=== PATIENT | male | born 1960 | race Caucasian/White ===

== ENCOUNTER 2019-12-16 04:50 | Emergency (ER) | payer OTHER ==
[~2019-12-16 04:50] MED LIST: /GLIP10TAB PO; ALBUPOW9 INH; ALPR0.25; ASPI325T OR; ATOR1TAB19 PO; CARV12.5 PO; CARV6.25 PO; CORE12.5 OR; CORE25TA OR; CYMB1CAP5 PO; ENDOCET; ENDOCET PO; FLEXERIL; HUMA75VL SQ; INSULANT; INSULANT SQ; ISOS30BRAN PO; METO1TAB87 PO; METO5TAB2 OR; NITR0.4S SL; OMEP20CA3 PO; OXYC10TA56; OXYC40TA19; OXYC40TA19 OR; OXYC40TA19 PO; PLAV75TA2 PO; PRIL20CA PO; TRAM50TA2; TRIC145T19 PO; ZETI10TA PO
[2019-12-16 07:39] VITALS: BP 107/64
== END 2019-12-16 07:45 | disposition home or self-care (01) ==
LOC: M ED 04:50
DX: F32.9 Major depressive disorder, single episode, unspecified (principal); F17.200 Nicotine dependence, unspecified, uncomplicated; I11.9 Hypertensive heart disease without heart failure; I25.10 Atherosclerotic heart disease of native coronary artery without angina pectoris; Z79.4 Long term (current) use of insulin; Z79.51 Long term (current) use of inhaled steroids; Z79.82 Long term (current) use of aspirin; Z79.899 Other long term (current) drug therapy; Z87.448 Personal history of other diseases of urinary system; Z88.0 Allergy status to penicillin

== ENCOUNTER 2020-07-23 12:00 | Emergency (ER) | payer MEDICARE, OTHER ==
[2020-07-23] MEDS ORDERED: PANT40TA29 PO (13:20)
[2020-07-23] MEDS ORDERED: BUPR15TASR PO (13:20)
[2020-07-23] MEDS ORDERED: GABA600T4 PO (13:20)
[2020-07-23] MEDS ORDERED: FURO40TA2 PO (13:20)
[2020-07-23] MEDS ORDERED: ASPI81CH33 PO (13:20)
[2020-07-23] MEDS ORDERED: NORV5TAB PO (13:20)
[2020-07-23] MEDS ORDERED: URSO1TAB8 PO (13:20)
[2020-07-23] MEDS ORDERED: VITA50005 PO (13:20)
[2020-07-23] MEDS ORDERED: DOCU8.6T PO (13:20)
[2020-07-23] MEDS ORDERED: CARV6.25 PO (13:20)
[2020-07-23] MEDS ORDERED: NON-325T5 PO (13:20)
[2020-07-23] MEDS ORDERED: VENTAER INH (13:20)
[2020-07-23] MEDS ORDERED: ATOR80TA59 PO (13:20)
[2020-07-23] MEDS ORDERED: OXYC-517 PO (13:20)
[2020-07-23] MEDS ORDERED: oxyCODONE 5MG TAB PO ONE (16:45)
[2020-07-23 16:58] VITALS: BP 136/91
--- NOTE | 2020-08-22 09:51 | REP ---
VENTILATION PERFUSION LUNG SCAN HISTORY: Chest tightness, elevated D-dimer. COMPARISON: Chest CT images 07/23/2020. TECHNIQUE: 1.0 mCi of Technetium-99m DTPA aerosol is given for the ventilation study and is followed by a 4.9 mCi Technetium-99m MAA intravenous dose for the perfusion exam. A series of eight planar images are acquired for each portion of the study. SCINTIGRAPHIC FINDINGS: There is mild central bronchial and esophageal deposition of inspired tracer consistent with some degree of chronic obstructive pulmonary disease (COPD). There is a matched ventilation perfusion defect on the RPO view in the right lung posteriorly. This is seen on lateral radiograph as well. No other perfusion defect is appreciated. IMPRESSION: Low probability scan for pulmonary embolus. MTDD
== END 2020-07-23 17:14 | disposition home or self-care (01) ==
LOC: M ED 12:00
DX: R79.1 Abnormal coagulation profile (principal); R07.9 Chest pain, unspecified; I50.9 Heart failure, unspecified; I25.10 Atherosclerotic heart disease of native coronary artery without angina pectoris; Z86.73 Personal history of transient ischemic attack (TIA), and cerebral infarction without residual deficits; G47.33 Obstructive sleep apnea (adult) (pediatric); J44.9 Chronic obstructive pulmonary disease, unspecified; K27.9 Peptic ulcer, site unspecified, unspecified as acute or chronic, without hemorrhage or perforation; Z89.611 Acquired absence of right leg above knee; Z89.612 Acquired absence of left leg above knee; Z88.0 Allergy status to penicillin; Z91.041 Radiographic dye allergy status; Z79.899 Other long term (current) drug therapy; Z79.02 Long term (current) use of antithrombotics/antiplatelets; Z79.82 Long term (current) use of aspirin; F17.200 Nicotine dependence, unspecified, uncomplicated
CPT/HCPCS: 78582; 84484; 99284; A9540; A9567

== ENCOUNTER 2020-08-08 21:31 | Emergency (ER) | payer MEDICARE, OTHER ==
[~2020-08-08 21:31] MED LIST changes: +ASPI81CH33 PO; +ATOR80TA59 PO; +BUPR15TASR PO; +DOCU8.6T PO; +FURO40TA2 PO; +GABA600T4 PO; +NON-325T5 PO; +NORV5TAB PO; +OXYC-517 PO; +PANT40TA29 PO; +URSO1TAB8 PO; +VENTAER INH; +VITA50005 PO
[2020-08-08 23:25] VITALS: BP 146/76
== END 2020-08-08 23:29 | disposition home or self-care (01) ==
LOC: M ED 21:31
DX: Z04.89 Encounter for examination and observation for other specified reasons (principal); F43.0 Acute stress reaction; Z88.0 Allergy status to penicillin; Z91.041 Radiographic dye allergy status; Z79.51 Long term (current) use of inhaled steroids; Z79.899 Other long term (current) drug therapy; Z79.891 Long term (current) use of opiate analgesic

== ENCOUNTER 2021-07-14 21:59 | Emergency (ER) | payer OTHER ==
[~2021-07-14 21:59] MED LIST changes: +ACET32TAB PO; +ERGO500029 PO; -NON-325T5 PO; -VITA50005 PO
[2021-07-14 23:14] LABS: BASO # 0.1 10^3/uL (0.0-0.2); BASO % 0.5 % (0.0-1.0); EOS # 0.1 10^3/uL (0.0-0.5); EOS % 1.1 % (0.0-3.0); HEMATOCRIT 40.6 % (42.0-52.0); HEMOGLOBIN 13.3 g/dl (13.5-17.5); LYMPH # 1.9 10^3/uL (1.5-5.0); LYMPH % 15.4 % (24.0-44.0); MEAN CORPUSCULAR HEMOGLOBIN 29.4 pg (27.0-33.0); MEAN CORPUSCULAR HGB CONC 32.8 g/dl (32.0-36.5); MEAN CORPUSCULAR VOLUME 89.8 fl (80.0-96.0); MONO # 0.9 10^3/uL (0.0-0.8); MONO % 7.7 % (2.0-8.0); NEUTROPHILS % 74.9 % (36.0-66.0); PLATELET COUNT, AUTOMATED 273 10^3/uL (150-450); RED BLOOD COUNT 4.52 10^6/uL (4.30-6.10)
[2021-07-14] MEDS ORDERED: ATOR40TA75 PO (23:19)
[2021-07-14] MEDS ORDERED: ISOS1TAB36 PO (23:19)
[2021-07-14] MEDS ORDERED: CARV12.5 PO (23:19)
[2021-07-14 23:24] LABS: INR 1.03; PROTHROMBIN TIME 13.9 SECONDS (12.7-14.5)
[2021-07-14 23:25] LABS: PARTIAL THROMBOPLASTIN TIME 28.9 SECONDS (25.9-37.0)
[2021-07-14] MEDS ORDERED: URSO300C3 PO (23:30)
[2021-07-14] MEDS ORDERED: CALM1OIN TOP (23:30)
[2021-07-14] MEDS ORDERED: SYMB80INH INH (23:30)
[2021-07-14] MEDS ORDERED: MORP1CAP46 PO (23:30)
[2021-07-14] MEDS ORDERED: FLUO40CA PO (23:30)
[2021-07-14] MEDS ORDERED: METF500T13 PO (23:30)
[2021-07-14] MEDS ORDERED: OXYC1TAB23 PO (23:30)
[2021-07-14] MEDS ORDERED: NYST1POW9 TOP (23:30)
[2021-07-14] MEDS ORDERED: TRAZ-252 PO (23:30)
[2021-07-14] MEDS ORDERED: ONDA-83 PO (23:30)
[2021-07-14] MEDS ORDERED: HOME MED LIST COMPLETE! XX SCH (23:35)
[2021-07-14 23:48] LABS: ALBUMIN 3.3 GM/DL (3.2-5.2); ALT/SGPT 18 U/L (12-78); BILIRUBIN,DIRECT 0.3 MG/DL (0.0-0.2); BILIRUBIN,TOTAL 0.9 MG/DL (0.2-1.0); CK-MB VALUE MASS 3.5 NG/ML (<3.6); CPK CREATINE PHOSPHOKINASE 180 U/L (39-308); LIPASE 114 U/L (73-393); MB/CK RELATIVE INDEX 1.94 (< OR =4); TOTAL PROTEIN 7.7 GM/DL (6.4-8.2); TROPONIN I < 0.02 NG/ML (< 0.10)
[2021-07-15] MEDS ORDERED: NS 1,000 ML IV ONE (00:15)
--- NOTE | 2021-07-15 02:15 | REPVR ---
PROCEDURE INFORMATION: Exam: CT Abdomen And Pelvis Without Contrast Exam date and time: 07/15/2021 1:39 AM Age: 61 years old Clinical indication: Nausea and vomiting; Abdominal pain; Generalized; Prior surgery; Additional info: N/v/d gen abd pain TECHNIQUE: Imaging protocol: Computed tomography of the abdomen and pelvis without contrast. Radiation optimization: All CT scans at this facility use at least one of these dose optimization techniques: automated exposure control; mA and/or kV adjustment per patient size (includes targeted exams where dose is matched to clinical indication); or iterative reconstruction. COMPARISON: CT CHEST W/O CONTRAST - OUTSIDE PRIOR 07/23/2020 6:26 AM FINDINGS: Lungs: Atelectasis or scarring is present at the lung bases. Liver: Noncontrast liver shows no obvious lesion. Gallbladder and bile ducts: Gallbladder is present and shows no evidence of gallstone. Pancreas: Noncontrast pancreas shows no obvious mass or adjacent fluid. Spleen: Noncontrast spleen shows no obvious focal deformity. Adrenal glands: Adrenal glands are normal in appearance. Kidneys and ureters: Kidneys show no stone or hydronephrosis. Stomach and bowel: No evidence of small bowel obstruction. Stomach is decompressed, giving it a somewhat thick-walled appearance. No evidence of acute diverticulitis. Appendix: Appendix is not seen. No RLQ inflammation to suggest appendicitis. Intraperitoneal space: No pneumoperitoneum. Vasculature: Atherosclerotic change present in the aorta, without aneurysm. Lymph nodes: No enlarged lymph nodes. Urinary bladder: Urinary bladder appears normal. Reproductive: No overt enlargement of the prostate gland. Bones/joints: Degenerative changes are seen in the lumbar spine with disc height loss, endplate osteophytes and hypertrophic facet arthropathy. Soft tissues: Unremarkable. Exam limitations: Limited evaluation without enteric or IV contrast. Exam is limited due to patient motion. Exam is limited by artifact from patient being scanned with arms at the sides. IMPRESSION: 1. Decompressed stomach, with somewhat thick-walled appearance. Significance of this is unclear given the degree of gastric under distension. Similar appearance compared to the prior exam. No small bowel obstruction. 2. Gallbladder Distention without stones. Electronically signed by: Jack Phelps On 07/15/2021 02:15:07 AM
[2021-07-15] MEDS ORDERED: PERCOCET 5MG/325MG TAB PO ONE (03:20)
[2021-07-15 03:52] VITALS: BP 107/67
== END 2021-07-15 06:22 | disposition home or self-care (01) ==
LOC: M ED 21:59
DX: R11.10 Vomiting, unspecified (principal); I50.9 Heart failure, unspecified; I25.10 Atherosclerotic heart disease of native coronary artery without angina pectoris; I25.2 Old myocardial infarction; I10 Essential (primary) hypertension; E78.5 Hyperlipidemia, unspecified; N18.30 Chronic kidney disease, stage 3 unspecified; M54.9 Dorsalgia, unspecified; Z51.5 Encounter for palliative care; Z79.82 Long term (current) use of aspirin; Z79.899 Other long term (current) drug therapy; Z91.041 Radiographic dye allergy status; Z88.0 Allergy status to penicillin

== ENCOUNTER 2021-07-25 20:35 | Observation (INO) | payer OTHER ==
[~2021-07-25] VITALS: Ht 121.9 cm; Wt 54.5 kg
[~2021-07-25 20:35] MED LIST changes: +ATOR40TA75 PO; +CALM1OIN TOP; +FLUO40CA PO; +ISOS1TAB36 PO; +METF500T13 PO; +MORP1CAP46 PO; +NYST1POW9 TOP; +ONDA-83 PO; +OXYC1TAB23 PO; +SYMB80INH INH; +TRAZ-252 PO; +URSO300C3 PO
[2021-07-25] MEDS ORDERED: PANTOPRAZOLE 40MG VIAL (C9113 PER 1) IV ONE (20:55)
[2021-07-25 21:06] LABS: BASO # 0.1 10^3/uL (0.0-0.2); BASO % 0.4 % (0.0-1.0); EOS # 0.1 10^3/uL (0.0-0.5); EOS % 0.4 % (0.0-3.0); HEMATOCRIT 41.4 % (42.0-52.0); HEMOGLOBIN 13.9 g/dl (13.5-17.5); LYMPH # 1.7 10^3/uL (1.5-5.0); LYMPH % 11.3 % (24.0-44.0); MEAN CORPUSCULAR HEMOGLOBIN 29.8 pg (27.0-33.0); MEAN CORPUSCULAR HGB CONC 33.6 g/dl (32.0-36.5); MEAN CORPUSCULAR VOLUME 88.7 fl (80.0-96.0); MONO % 6.5 % (2.0-8.0); NEUTROPHILS # 12.1 10^3/uL (1.5-8.5); NEUTROPHILS % 80.9 % (36.0-66.0); PLATELET COUNT, AUTOMATED 274 10^3/uL (150-450); RED BLOOD COUNT 4.67 10^6/uL (4.30-6.10); WHITE BLOOD COUNT 14.9 10^3/uL (4.0-10.0)
[2021-07-25] MEDS ORDERED: NS 1,000 ML IV ONE (21:15)
[2021-07-25 21:57] LABS: INR 1.06; PROTHROMBIN TIME 14.2 SECONDS (12.7-14.5)
[2021-07-25 21:58] LABS: PARTIAL THROMBOPLASTIN TIME 29.6 SECONDS (25.9-37.0)
[2021-07-25 22:07] LABS: ALBUMIN 3.1 GM/DL (3.2-5.2); ALT/SGPT 20 U/L (12-78); BILIRUBIN,DIRECT 0.1 MG/DL (0.0-0.2); BILIRUBIN,TOTAL 1.2 MG/DL (0.2-1.0); CK-MB VALUE MASS 4.9 NG/ML (<3.6); CPK CREATINE PHOSPHOKINASE 433 U/L (39-308); LIPASE 165 U/L (73-393); MB/CK RELATIVE INDEX 1.13 (< OR =4); TOTAL PROTEIN 8.1 GM/DL (6.4-8.2); TROPONIN I < 0.02 NG/ML (< 0.10)
--- NOTE | 2021-07-25 22:21 | REPVR ---
PROCEDURE INFORMATION: Exam: CT Abdomen And Pelvis Without Contrast Exam date and time: 07/25/2021 9:33 PM Age: 61 years old Clinical indication: Abdominal pain; Generalized TECHNIQUE: Imaging protocol: Computed tomography of the abdomen and pelvis without contrast. Radiation optimization: All CT scans at this facility use at least one of these dose optimization techniques: automated exposure control; mA and/or kV adjustment per patient size (includes targeted exams where dose is matched to clinical indication); or iterative reconstruction. COMPARISON: CT ABD PELVIS W/O CONTRAST 07/15/2021 1:24 AM FINDINGS: Liver: Unremarkable. No mass. Gallbladder and bile ducts: Gallbladder remains mildly distended. No calcified gallstones or biliary duct dilation. No gallbladder wall thickening. Pancreas: Normal. No ductal dilation. Spleen: Normal. No splenomegaly. Adrenal glands: Normal. No mass. Kidneys and ureters: Kidneys are atrophic. No renal masses or hydronephrosis. Stomach and bowel: Unremarkable. No obstruction. No inflammatory changes or mucosal thickening. Appendix: No evidence of appendicitis. Intraperitoneal space: No free air. No significant fluid collection. Vasculature: Unremarkable. No abdominal aortic aneurysm. Lymph nodes: Unremarkable. No enlarged lymph nodes. Urinary bladder: No bladder wall thickening. Reproductive: Unremarkable as visualized. Bones/joints: There are advanced degenerative changes in the spine and pelvis. Changes of avascular necrosis in both femoral heads. Multilevel central spinal stenosis and foraminal stenosis. Soft tissues: Unremarkable. IMPRESSION: 1. Mildly distended gallbladder. No gallbladder calculi or secondary signs of acute cholecystitis. 2. Atrophic kidneys. 3. Changes of avascular necrosis in the femoral heads. Advanced degenerative spondylosis in the spine. Electronically signed by: Kiran Richards On 07/25/2021 22:21:12 PM
[2021-07-25 22:29] LABS: RSV AMPLIFICATION NEGATIVE (NEGATIVE)
[2021-07-25 23:31] LABS: PTH INTACT 82.7 PG/ML (18.5-88.0)
[2021-07-25 23:56] LABS: FREE T4 1.65 NG/DL (0.76-1.46); THYROID STIMULATING HORMONE 0.617 uIU/ML (0.358-3.740)
[2021-07-26] MEDS ORDERED: GLUCOSE 4GM CHEW TABLET PO PRN (00:10)
[2021-07-26] MEDS ORDERED: DEXTROSE 50% 50 ML SYRINGE IV PRN (00:10)
[2021-07-26] MEDS ORDERED: GLUCAGON INJ 1MG VIAL SC PRN (00:10)
[2021-07-26] MEDS ORDERED: HOME MED LIST COMPLETE! XX SCH (00:25)
[2021-07-26] MEDS ORDERED: ASPI-161 PO (00:50)
[2021-07-26] MEDS ORDERED: CARV12.5 PO (00:50)
[2021-07-26] MEDS ORDERED: ATOR80TA59 PO (00:50)
[2021-07-26] MEDS ORDERED: NEUR300C PO (00:50)
[2021-07-26] MEDS ORDERED: AMLO1TAB24 PO (00:50)
[2021-07-26] MEDS ORDERED: METF-839 PO (00:51)
[2021-07-26] MEDS ORDERED: MORP1CAP46 PO (00:51)
[2021-07-26] MEDS ORDERED: URSO300C3 PO (00:51)
[2021-07-26] MEDS ORDERED: FURO40TA2 PO (00:51)
[2021-07-26] MEDS ORDERED: OXYC1TAB23 PO (00:51)
[2021-07-26] MEDS ORDERED: FLUO40CA PO (00:51)
[2021-07-26] MEDS ORDERED: PANT40TA29 PO (00:51)
[2021-07-26] MEDS ORDERED: ISOS1TAB36 PO (00:51)
[2021-07-26 00:53] LABS: HEMOGLOBIN A1c 5.6 %
[2021-07-26] MEDS: NS 1,000 ML IV SCH ×3 (00:57→20:29)
--- NOTE | 2021-07-26 01:32 | HPEPDOC ---
General Date of Admission 07/26/21 Date of Service: Jul 26, 2021 Chief Complaint The patient is a 61-year-old male admitted with a reason for visit of Abdominal Pain. Source: Patient, retirement records Exam Limitations: Clinical conditions, Mild cognitive slowing History of Present Illness Nikita Sweeney is a 61-year-old male [facility] resident with history of CAD/[place], COPD, type 2 diabetes mellitus, hypertension, CHF, CVA with residual left hemiplegia, PVD, history of COVID-19, aphasia, dysphagia, status post bilateral BKA, GERD, HDL and ARNALDO who arrives with complaints of nausea vomiting and abdominal pain. Patient limited in responding given withdrawn affect but he does respond appropriately when he chooses to respond. Patient able to follow commands and does describe nausea vomiting for a few days. Majority of history obtained from [facility] records. Reportedly, RN was called to the residence room after nonverbal episode post biliary emesis and he was sent to ED for evaluation. Patient does have a known history of cholecystolithiasis and is on Ursodiol. Upon arrival to ED patient was found afebrile, soft BP, with leukocytosis and lactic acidosis patient underwent CT abdomen pelvis which showed mildly distende d gallbladder but no gallstone or secondary signs of acute cholecystitis. Lipase 165, bili 1.2, AST 44, ALT 20, CK 433, creatinine 3.2, ionized calcium 2.4. Patient will be admitted for further evaluation management presenting concerns Home Medications Scheduled Amlodipine Besylate (Amlodipine Besylate) 5 Mg Tablet, 5 MG PO DAILY, (Reported) Aspirin (Aspirin) 81 Mg Tab.chew, 81 MG PO DAILY, (Reported) Atorvastatin Calcium (Atorvastatin Calcium) 40 Mg Tablet, 40 MG PO QHS, (R eported) Carvedilol (Carvedilol) 12.5 Mg Tablet, 12.5 MG PO BID, (Reported) Dextrose (Dextrose 5%-Water IV Soln) 500 Ml Iv.soln, IV ASDIRECTED, (Reported) 60ML/HR FOR HYDRATION AT [facility] Fluoxetine Hcl (Fluoxetine HCl) 40 Mg Capsule, 40 MG PO DAILY, (Reported) Furosemide (Furosemide) 40 Mg Tablet, 40 MG PO DAILY, (Reported) Isosorbide Mononitrate (Isosorbide Mononitrate ER) 60 Mg Tab.er.24h, 60 MG PO DAILY, (Reported) Menthol/Zinc Oxide (Calmoseptine Ointment Packet) 3.5 Gm Oint.pack, 1 DOSE TOP DAILY, (Reported) APPLY TO BUTTOCKS Metformin HCl (Metformin HCl) 500 Mg Tablet, 500 MG PO BID, (Reported) Morphine Sulfate (Morphine Sulfate ER 24HR) 10 Mg Cap.er.pel, 10 MG PO BID, (Reported) Pantoprazole Sodium (Pantoprazole Sodium) 40 Mg Tablet.dr, 40 MG PO DAILY, (Reported) Trazodone HCl (Trazodone HCl) 50 Mg Tablet, 25 MG PO QHS, (Reported) Ursodiol (Ursodiol) 300 Mg Capsule, 300 MG PO BID, (Reported) Scheduled PRN Oxycodone HCl/Acetaminophen (Oxycodone-Acetaminophen 5-325) 1 Each Tablet, 1 TAB PO Q6H PRN for MODERATE/SEVERE PAIN (PS 5-10), (Reported) Prochlorperazine (Prochlorperazine) 25 Mg Supp.rect, 25 MG IA Q12H PRN for NAUSEA OR VOMITING, (Reported) Allergies Coded Allergies: Contrast Media (Verified Allergy, Unknown, unknown, 07/23/20) Penicillins (Verified Allergy, Unknown, rash, 07/23/20) Past Medical History Medical History CAD/MT, COPD, diabetes type 2, hypertension, CHF, CVA with left hemiplegia, PVD, COVID-19 history, aphasia, dysphagia, status post bilateral BKA, GERD, HDL, ARNALDO and CRF. Surgical History Bilateral BKA Family History Significant Family History: No pertinent family hx Social History * Smoker: former Smoker Alcohol: Denies Drugs: denies Recent Travel/Sick Contacts: Denies: Recent travel, Recent sick contacts Psychosocial History: Depression A-FIB/CHADSVASC A-FIB History Current/History of A-Fib/PAF?: No Current PO Anticoag Therapy: No Review of Systems Other systems Unable to obtain Physical Examination General Exam: Positive: Alert, No Acute Distress; Negative: Cooperative Eye Exam: Positive: PERRLA, Conjunctiva & lids normal, EOMI; Negative: Sclera icteric ENT Exam: Positive: Atraumatic, Pharynx Normal; Negative: Mucous membr. moist/pink Neck Exam: Positive: Supple; Negative: JVD, thyromegaly Chest Exam: Positive: Diminished Heart Exam: Positive: Rate Normal, Regular Rhythm, Normal S1, Normal S2; Negative: Murmurs, Rubs Telemetry: Positive: No significant arrhythmia Abdomen Exam: Positive: Normal bowel sounds, Soft, Tenderness; Negative: Hepatospenomegaly Extremity Exam: Positive: Other (Bilateral BKA); Negative: Clubbing, Cyanosis, Edema Skin Exam: Positive: Nl turgor and temperature; Negative: Lesion Neuro Exam: Positive: Normal Speech, Cranial Nerves 3-12 NL, Reflexes 2+ Psych Exam: Positive: Mood NL, Oriented x 3 (Oriented x3 however patient with withdrawn affect and does not readily follow commands or answer questions/is nontalkative) Vital Signs Vital Signs Date Time Temp Pulse Resp B/P (MAP) Pulse Ox O2 Delivery O2 Flow Rate FiO2 07/25/21 23:50 71 07/25/21 23:45 85/59 (68) 07/25/21 22:35 99 07/25/21 20:59 97.2 16 Room Air Laboratory Data Labs 24H Laboratory Tests 2 07/25/21 20:57: Immature Granulocyte % (Auto) 0.5, Neutrophils (%) (Auto) 80.9H, Lymphocytes (%) (Auto) 11.3L, Monocytes (%) (Auto) 6.5, Eosinophils (%) (Auto) 0.4, Basophils (%) (Auto) 0.4, Neutrophils # (Auto) 12.1H, Lymphocytes # (Auto) 1.7, Monocytes # (Auto) 1.0H, Eosinophils # (Auto) 0.1, Basophils # (Auto) 0.1, Nucleated Red Blood Cells % (auto) 0.0, Lactic Acid Level 2.4*H, Total Bilirubin 1.2H, Direct Bilirubin 0.1, Aspartate Amino Transf (AST/SGOT) 44H, Alanine Aminotransferase (ALT/SGPT) 20, Alkaline Phosphatase 126H, Total Creatine Kinase 433H, Creatine Kinase MB 4.9H, Creatine Kinase MB Relative Index 1.13, Troponin I < 0.02, Total Protein 8.1, Albumin 3.1L, Albumin/Globulin Ratio 0.6, Lipase 165, Thyroid Stimulating Hormone (TSH) 0.617, Free Thyroxine 1.65H, Parathyroid Hormone (Intact) 82.7 07/25/21 20:59: POC Glucose (Misc Panel) 180H, POC Sodium (Misc Panel) 137, POC Potassium (Misc Panel) 4.8, POC Chloride (Misc Panel) 94L, POC Total CO2 (Misc Panel) 27.0, POC Blood Urea Nitrogen (Misc Panel 92H, POC Ionized Calcium (Misc Panel) 2.4*L, POC Creatinine (Misc Panel) 3.2H, POC Hematocrit (Misc Panel) 45.0 07/25/21 21:15: Prothrombin Time 14.2H, Prothromb Time International Ratio 1.06, Activated Partial Thromboplast Time 29.6, Ammonia 16 07/25/21 21:24: Coronavirus (COVID-19)(PCR) NEGATIVE, Influenza Type A (RT-PCR) NEGATIVE, Influenza Type B (RT-PCR) NEGATIVE, Respiratory Syncytial Virus (PCR) NEGATIVE CBC/BMP Laboratory Tests 07/25/21 20:57 Assessment/Plan 1. BRETT on CKD: In setting of Dehydration, poor po and GI losses. Creat 1.3 to 3.2 on admission. -Hydration -Monitor urine output and fluid balance given history of CHF -Symptom management/supportive care with antiemetics. -A.m. labs -Avoid nephrotoxins and consider renal ultrasound given atrophic kidneys on CT a bdomen pelvis. 2. Intractable nausea/vomiting: Patient without secondary signs of acute cholecystitis according to CT abdomen pelvis despite mildly distended gallbladder. -Plan to monitor patient, hydrate. Consider GI consult and further imaging. -Gi panel -Check a1c, consideration for gastroparesis 3. Leukocytosis: Could be reactive or related to enterocolitis. -Will check UA -Chest x-ray given aspiration risk, hx of dysphagia. -Blood culture sent. -Consider empiric coverage. 4. History of dysphagia 2/2 CVA: Pt failed Bedside RN swallow test. Will make NPO and appreciate RN CLINICAL. Again, consider aspiration coverage once cxr results. 5. Hypocalcemia: Exact etiology unknown will check TSH and PTH. Lipase within normal limits. QTC 506. This may be relative to patient reported abdominal discomfort. Replete. Hold patient home PPI. Consider differentials. 6. Diabetes: -Check A1c. -Accu-Cheks ACHS, sliding scale insulin. -Given patient poor p.o.; hypoglycemia protocol placed and consider dextrose fluids if needed. -Once patient tolerating p.o. consider dietitian consult for supplements given patient with poor appetite according to preadmission paperwork. 7. CHF: Check BNP. Pt dry on exam. Last Echo 2005, EF 60%. -Will hydrate given above and hold any home diuretics. Consider echo. 8. Hypertension: Patient BP on soft side. Will hold home meds. 9. Deconditioning in patient with hemiplegia and bilateral BKA: -Assist with turning to prevent skin breakdown. -Pt has a history of sacral ulcers, wound care order and mepiplex 10. History of depression: Encourage expression. Continue home medications once reconciled. 11. Incidental CT finding: Changes of avascular necrosis in femoral heads. Confirmed with Ortho on-call this is a chronic finding and no acute interventions. DVT: Heparin CODE STATUS: DNR/DNI, MOLST form on chart. Dispo planning: Back to [facility] and rehab once patient tolerating p.o. and creatinine normalizes Plan / VTE VTE Prophylaxis Ordered?: Yes BRAEDEN HAWK NP Jul 26, 2021 00:19
[2021-07-26] MEDS ORDERED: ASPI1CHW3 PO (01:39)
[2021-07-26] MEDS ORDERED: ATOR40TA75 PO (01:39)
[2021-07-26] MEDS ORDERED: TRAZ-252 PO (01:39)
[2021-07-26] MEDS ORDERED: CALM1OIN TOP (01:39)
[2021-07-26] MEDS ORDERED: PROC25SU24 PR (01:39)
[2021-07-26] MEDS ORDERED: [UNRECOGNIZED DRUG - OTHER] IV (01:39)
[2021-07-26 01:45] VITALS: BP 120/81
[2021-07-26] MEDS ORDERED: MORPHINE 2 MG/ML 1ML VIAL (J2270) IV PRN (02:00)
[2021-07-26] MEDS ORDERED: CALCIUM GLUCONATE 1,000 MG in D5W MINI-BAG PLUS 100 ML IV ONE ×2 (03:00→04:30)
[2021-07-26] MEDS ORDERED: ONDANSETRON 4MG/2ML VIAL IV PRN (03:15)
[2021-07-26 03:21] LABS: CALCIUM LEVEL 5.8 MG/DL (8.8-10.2); GLOMERULAR FILTRATION RATE 22.8 (>49); POTASSIUM SERUM 3.5 MEQ/L (3.5-5.1)
[2021-07-26] MEDS: HEPARIN SOD (PORCINE) 5000UNITS/ML 1ML VIAL/SYRINGE SQ SCH ×3 (05:17→20:28)
[2021-07-26 05:25] VITALS: BP 118/79
[2021-07-26] MEDS: HumaLOG INSULIN (NovoLOG) PER UNIT SC SCH ×4 (07:30→21:00)
--- NOTE | 2021-07-26 08:11 | REP ---
INDICATION: aspiration concern. COMPARISON: Comparison chest x-ray May 17, 2015. TECHNIQUE: Portable upright AP chest radiograph. FINDINGS: EKG monitoring electrodes are visible. The lungs are symmetrically aerated and free of infiltrate. There is a skin fold along the right chest wall. The pleural angles are sharp. Patient is status post coronary artery stenting. The heart is not felt to be enlarged. Pulmonary vasculature is not increased. IMPRESSION: No active disease. <Electronically signed by Aldair Del Angel > 07/26/21 [id number]
[2021-07-26 08:51] LABS: BASO % 0.3 % (0.0-1.0); EOS % 0.1 % (0.0-3.0); HEMATOCRIT 36.9 % (42.0-52.0); HEMOGLOBIN 12.5 g/dl (13.5-17.5); LYMPH # 1.2 10^3/uL (1.5-5.0); LYMPH % 7.8 % (24.0-44.0); MEAN CORPUSCULAR HGB CONC 33.9 g/dl (32.0-36.5); MEAN CORPUSCULAR VOLUME 88.7 fl (80.0-96.0); MONO # 0.9 10^3/uL (0.0-0.8); MONO % 5.9 % (2.0-8.0); NEUTROPHILS # 13.3 10^3/uL (1.5-8.5); NEUTROPHILS % 85.4 % (36.0-66.0); PLATELET COUNT, AUTOMATED 224 10^3/uL (150-450); RED BLOOD COUNT 4.16 10^6/uL (4.30-6.10); WHITE BLOOD COUNT 15.5 10^3/uL (4.0-10.0)
[2021-07-26] MEDS ORDERED: ENOXAPARIN 30MG/0.3ML SYRINGE (J1650 PER 10MG) SC SCH (09:00)
[2021-07-26] MEDS ORDERED: PANTOPRAZOLE 40MG TAB (PROTONIX) PO SCH (09:00)
[2021-07-26] MEDS: CARVedilol 12.5 MG TAB PO SCH ×2 (09:00→20:26)
[2021-07-26] MEDS ORDERED: ursodioL 300 MG CAP PO SCH (09:00)
[2021-07-26 09:22] LABS: ALBUMIN 2.8 GM/DL (3.2-5.2); BILIRUBIN,TOTAL 0.8 MG/DL (0.2-1.0); CALCIUM LEVEL 6.5 MG/DL (8.8-10.2); CREATININE FOR GFR 2.58 MG/DL (0.70-1.30); GLOMERULAR FILTRATION RATE 27.1 (>49); MAGNESIUM LEVEL 0.7 MG/DL (1.8-2.4); POTASSIUM SERUM 3.2 MEQ/L (3.5-5.1)
[2021-07-26] MEDS: FLUoxetine 20 MG CAP PO SCH (09:59)
[2021-07-26] MEDS: ASPIRIN 81 MG CHEW TABLET PO SCH (09:59)
[2021-07-26] MEDS: MAG SULF 1GM/100ML (MAG RUN) 1 GM in IV 1 EA IV SCH ×2 (09:59→12:15)
[2021-07-26] MEDS: PERCOCET 5MG/325MG TAB PO PRN (10:00)
[2021-07-26] MEDS: NYSTATIN 100,000 UNITS/GM TOPICAL PWD 15 GM TOP SCH ×2 (10:01→21:00)
[2021-07-26 13:30] LABS: CALCIUM LEVEL 6.3 MG/DL (8.8-10.2); CREATININE FOR GFR 2.47 MG/DL (0.70-1.30); GLOMERULAR FILTRATION RATE 28.5 (>49); MAGNESIUM LEVEL 1.3 MG/DL (1.8-2.4)
[2021-07-26] MEDS ORDERED: MAGNESIUM OXIDE 400MG TAB (MAG-OX) PO ONE (13:40)
[2021-07-26] MEDS ORDERED: MAG SULF 1GM/100ML (MAG RUN) 1 GM in IV 1 EA IV ONE (14:00)
--- NOTE | 2021-07-26 14:28 | IPNPDOC ---
Text Note Date of Service The patient was seen on 07/26/21. NOTE Subjective: Patient complains of generalized weakness. He stated that his na usea and vomiting resolved Objective: GENERAL APPEARANCE: NAD HEENT: no scleral icterus, no JVD, EOMI CARDIOVASCULAR: S1S2 LUNGS: CTA ABDOMEN: soft & not tender w palpation MUSCULOSKELETAL: no cyanosis, no swelling, below-knee amputation bilaterally INTEGUMENT: no generalized pallor NEUROLOGICAL: cranial nerve function from 2-12 intact, follows commands, speech not dysarthric Assessment and plan Patient is 61 years old male with past medical history of CAD/[place], COPD, type 2 diabetes mellitus, hypertension, CHF, CVA with residual left hemiplegia, PVD, history of COVID-19, aphasia, dysphagia, status post bilateral BKA, GERD, HDL and ARNALDO who arrives with complaints of nausea vomiting and abdominal pain. Patient was found to have profound electrolyte abnormalities. Electrolytes abnormalities Patient was found to have hypocalcemia, hypomagnesemia, hypokalemia Electrolytes replaced Nausea/vomiting CT abdomen showed mildly distended gallbladder. No gallbladder calculi or secondary signs of acute cholecystitis. No small bowel obstruction or ileus Nausea/vomiting abdominal pain can be associated with gastritis versus viral gastroenteritis. PPI Continue Zofran as needed Deconditioning PT/OT BRETT on CKD Most likely secondary to volume contraction secondary to vomiting Continue to monitor Continue IV fluid Leukocytosis Could be secondary to gastroenteritis or could be reactive Await blood culture, procalcitonin UA negative Chest x-ray did not show any acute infiltrate Patient afebrile History of dysphagia Await speech and specialist evaluation History of CVA Continue home meds Type 2 diabetes Insulin sliding scale Glucose level under control Hypertension Continue home meds with parameters Depression Continue home meds Avascular hip necrosis Incidental CT finding: Changes of avascular necrosis in femoral heads. Confirmed with Ortho on-call this is a chronic finding and no acute interventions Chronic diastolic CHF Patient mildly dehydrated Not in acute exacerbation Continue to monitor Lasix on hold VS,Fishbone, I+O VS, Fishbone, I+O Laboratory Tests 07/25/21 20:57 07/26/21 02:26 07/26/21 08:38 07/26/21 12:18 Vital Signs Date Time Temp Pulse Resp B/P (MAP) Pulse Ox O2 Delivery O2 Flow Rate FiO2 07/26/21 10:30 16 07/26/21 05:25 97.6 69 118/79 (39) 92 Room Air I&O- Last 24 Hours up to 6 AM 07/26/21 06:00 Intake Total 645 ml Output Total 415 ml Balance 230 ml SOLO DOVE DO Jul 26, 2021 14:28
[2021-07-26] MEDS ORDERED: KCL 10MEQ/100ML SWI (KRUN) 10 MEQ in IV 1 EA IV ONE (15:00)
[2021-07-26] MEDS ORDERED: POTASSIUM CHLORIDE 10MEQ SR TABLET PO ONE (15:00)
[2021-07-26 16:00] VITALS: BP 116/77
[2021-07-26] MEDS: traZODone 25MG PER 1/2 TABLET PO SCH (20:25)
[2021-07-26] MEDS: ATORVASTATIN 20 MG TAB PO SCH (20:26)
[2021-07-26] MEDS: PANTOPRAZOLE 40MG VIAL (C9113 PER 1) IV SCH (20:26)
--- NOTE | 2021-07-26 21:19 | ECGEPIP ---
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
[2021-07-26 22:00] VITALS: BP 149/93
[2021-07-26] MEDS: ACETAMINOPHEN TAB 650MG DOSE (2X325MG) PO PRN (22:36)
[2021-07-27] MEDS: HEPARIN SOD (PORCINE) 5000UNITS/ML 1ML VIAL/SYRINGE SQ SCH ×3 (05:10→20:24)
[2021-07-27] MEDS: NS 1,000 ML IV SCH (05:13)
[2021-07-27 06:00] VITALS: BP 142/80
[2021-07-27 06:44] LABS: BASO % 0.3 % (0.0-1.0); EOS # 0.1 10^3/uL (0.0-0.5); HEMOGLOBIN 12.6 g/dl (13.5-17.5); LYMPH # 1.4 10^3/uL (1.5-5.0); MEAN CORPUSCULAR HEMOGLOBIN 29.4 pg (27.0-33.0); MEAN CORPUSCULAR HGB CONC 33.2 g/dl (32.0-36.5); MEAN CORPUSCULAR VOLUME 88.6 fl (80.0-96.0); MONO % 7.2 % (2.0-8.0); NEUTROPHILS # 11.4 10^3/uL (1.5-8.5); NEUTROPHILS % 80.9 % (36.0-66.0); PLATELET COUNT, AUTOMATED 204 10^3/uL (150-450); RED BLOOD COUNT 4.29 10^6/uL (4.30-6.10); WHITE BLOOD COUNT 14.1 10^3/uL (4.0-10.0)
[2021-07-27 07:04] LABS: CALCIUM LEVEL 6.4 MG/DL (8.8-10.2); CREATININE FOR GFR 1.84 MG/DL (0.70-1.30); POTASSIUM SERUM 3.1 MEQ/L (3.5-5.1)
[2021-07-27] MEDS ORDERED: POTASSIUM CHLORIDE 10MEQ SR TABLET PO ONE (08:20)
[2021-07-27] MEDS ORDERED: MAG SULF 1GM/100ML (MAG RUN) 1 GM in IV 1 EA IV SCH (09:00)
[2021-07-27] MEDS: PANTOPRAZOLE 40MG VIAL (C9113 PER 1) IV SCH ×2 (09:08→20:23)
[2021-07-27] MEDS: HumaLOG INSULIN (NovoLOG) PER UNIT SC SCH ×4 (09:09→20:23)
[2021-07-27] MEDS: ASPIRIN 81 MG CHEW TABLET PO SCH (09:09)
[2021-07-27] MEDS: FLUoxetine 20 MG CAP PO SCH (09:10)
[2021-07-27] MEDS: MAGNESIUM OXIDE 400MG TAB (MAG-OX) PO SCH (09:11)
[2021-07-27] MEDS: NYSTATIN 100,000 UNITS/GM TOPICAL PWD 15 GM TOP SCH ×2 (09:11→20:23)
[2021-07-27] MEDS: CARVedilol 12.5 MG TAB PO SCH ×2 (09:12→20:23)
[2021-07-27 09:24] LABS: MAGNESIUM LEVEL 1.6 MG/DL (1.8-2.4)
[2021-07-27] MEDS ORDERED: KCL 10MEQ/100ML SWI (KRUN) 10 MEQ in IV 1 EA IV SCH (10:00)
[2021-07-27] MEDS: PERCOCET 5MG/325MG TAB PO PRN ×2 (12:13→18:26)
--- NOTE | 2021-07-27 13:17 | IPNPDOC ---
Text Note Date of Service The patient was seen on 07/27/21. NOTE Subjective: No new acute events overnight. Patient stated that he feels better today Objective: GENERAL APPEARANCE: NAD HEENT: no scleral icterus, no JVD, EOMI CARDIOVASCULAR: S1S2 LUNGS: CTA ABDOMEN: soft & not tender w palpation MUSCULOSKELETAL: no cyanosis, no swelling, below-knee amputation bilaterally INTEGUMENT: no generalized pallor NEUROLOGICAL: cranial nerve function from 2-12 intact, follows commands, speech not dysarthric Assessment and plan Patient is 61 years old male with past medical history of CAD/[place], COPD, type 2 diabetes mellitus, hypertension, CHF, CVA with residual left hemiplegia, PVD, history of COVID-19, aphasia, dysphagia, status post bilateral BKA, GERD, HDL and ARNALDO who arrives with complaints of nausea vomiting and abdominal pain. Patient was found to have profound electrolyte abnormalities. Electrolytes abnormalities Electrolytes replaced Nausea/vomiting Resolved CT abdomen showed mildly distended gallbladder. No gallbladder calculi or secondary signs of acute cholecystitis. No small bowel obstruction or ileus Continue PPI Continue Zofran as needed Deconditioning PT/OT BRETT on CKD Most likely secondary to volume contraction secondary to vomiting Continue to monitor Improved Leukocytosis Could be secondary to viral gastroenteritis or could be reactive blood culture negative, procalcitonin negative UA negative Chest x-ray did not show any acute infiltrate Patient afebrile History of dysphagia Await speech and specialist evaluation History of CVA Continue home meds Type 2 diabetes Insulin sliding scale Glucose level under control Hypertension Continue home meds with parameters Depression Continue home meds Avascular hip necrosis Incidental CT finding: Changes of avascular necrosis in femoral heads. Confirmed with Ortho on-call this is a chronic finding and no acute interventions Chronic diastolic CHF Not in acute exacerbation Continue to monitor Lasix on hold VS,Fishbone, I+O VS, Fishbone, I+O Laboratory Tests 07/27/21 06:14 Vital Signs Date Time Temp Pulse Resp B/P (MAP) Pulse Ox O2 Delivery O2 Flow Rate FiO2 07/27/21 12:13 18 07/27/21 09:12 64 142/80 07/27/21 06:00 97.8 97 Room Air I&O- Last 24 Hours up to 6 AM 07/27/21 06:00 Intake Total 3540 ml Output Total 400 ml Balance 3140 ml SOLO DOVE DO Jul 27, 2021 13:17
[2021-07-27 14:00] VITALS: BP 138/74
[2021-07-27 18:21] VITALS: BP 133/82
[2021-07-27] MEDS: traZODone 25MG PER 1/2 TABLET PO SCH (20:19)
[2021-07-27] MEDS: ATORVASTATIN 20 MG TAB PO SCH (20:22)
[2021-07-27] MEDS: ACETAMINOPHEN TAB 650MG DOSE (2X325MG) PO PRN (20:22)
[2021-07-27 22:00] VITALS: BP 130/80
[2021-07-28] MEDS: NS 1,000 ML IV SCH ×2 (00:16→02:10)
[2021-07-28] MEDS: PERCOCET 5MG/325MG TAB PO PRN ×5 (00:20→21:52)
[2021-07-28 06:00] VITALS: BP 126/75
[2021-07-28] MEDS: HEPARIN SOD (PORCINE) 5000UNITS/ML 1ML VIAL/SYRINGE SQ SCH ×3 (06:25→21:53)
[2021-07-28] MEDS: ACETAMINOPHEN TAB 650MG DOSE (2X325MG) PO PRN ×2 (06:25→23:18)
[2021-07-28 07:08] LABS: BASO % 0.3 % (0.0-1.0); EOS # 0.2 10^3/uL (0.0-0.5); EOS % 1.7 % (0.0-3.0); HEMATOCRIT 33.8 % (42.0-52.0); HEMOGLOBIN 11.2 g/dl (13.5-17.5); LYMPH # 1.2 10^3/uL (1.5-5.0); LYMPH % 13.1 % (24.0-44.0); MEAN CORPUSCULAR HEMOGLOBIN 29.6 pg (27.0-33.0); MEAN CORPUSCULAR HGB CONC 33.1 g/dl (32.0-36.5); MEAN CORPUSCULAR VOLUME 89.4 fl (80.0-96.0); MONO # 0.7 10^3/uL (0.0-0.8); MONO % 7.6 % (2.0-8.0); NEUTROPHILS # 6.9 10^3/uL (1.5-8.5); NEUTROPHILS % 76.9 % (36.0-66.0); PLATELET COUNT, AUTOMATED 183 10^3/uL (150-450); RED BLOOD COUNT 3.78 10^6/uL (4.30-6.10)
[2021-07-28 07:25] LABS: BLOOD UREA NITROGEN 23 MG/DL (7-18); CALCIUM LEVEL 6.4 MG/DL (8.8-10.2); CARBON DIOXIDE LEVEL 24 MEQ/L (21-32); CHLORIDE LEVEL 110 MEQ/L (98-107); CREATININE FOR GFR 1.26 MG/DL (0.70-1.30); GLOMERULAR FILTRATION RATE > 60.0 (>49); GLUCOSE, FASTING 108 MG/DL (70-100); MAGNESIUM LEVEL 1.5 MG/DL (1.8-2.4); POTASSIUM SERUM 3.1 MEQ/L (3.5-5.1); SODIUM LEVEL 141 MEQ/L (136-145)
[2021-07-28] MEDS: HumaLOG INSULIN (NovoLOG) PER UNIT SC SCH ×4 (07:30→21:00)
[2021-07-28] MEDS ORDERED: POTASSIUM CHLORIDE 10MEQ SR TABLET PO ONE (07:35)
[2021-07-28] MEDS ORDERED: MAG SULF 1GM/100ML (MAG RUN) 1 GM in IV 1 EA IV SCH (08:00)
[2021-07-28] MEDS ORDERED: KCL 10MEQ/100ML SWI (KRUN) 10 MEQ in IV 1 EA IV SCH (09:00)
[2021-07-28] MEDS: CARVedilol 12.5 MG TAB PO SCH ×2 (09:49→21:53)
[2021-07-28] MEDS: PANTOPRAZOLE 40MG VIAL (C9113 PER 1) IV SCH ×2 (09:51→21:51)
[2021-07-28] MEDS: MAGNESIUM OXIDE 400MG TAB (MAG-OX) PO SCH ×2 (09:52→21:51)
[2021-07-28] MEDS: NYSTATIN 100,000 UNITS/GM TOPICAL PWD 15 GM TOP SCH ×2 (09:52→21:00)
[2021-07-28] MEDS: ASPIRIN 81 MG CHEW TABLET PO SCH (09:52)
[2021-07-28] MEDS: FLUoxetine 20 MG CAP PO SCH (09:52)
[2021-07-28] MEDS ORDERED: MAG SULF 1GM/100ML (MAG RUN) 1 GM in IV 1 EA IV ONE (10:00)
[2021-07-28] MEDS ORDERED: KCL 10MEQ/100ML SWI (KRUN) 10 MEQ in IV 1 EA IV ONE (10:00)
--- NOTE | 2021-07-28 12:31 | IPNPDOC ---
Text Note Date of Service The patient was seen on 07/28/21. NOTE Subjective: No new acute events overnight. Patient denies fever, chills, nausea, vomiting, diarrhea Objective: GENERAL APPEARANCE: NAD HEENT: no scleral icterus, no JVD, EOMI CARDIOVASCULAR: S1S2 LUNGS: CTA ABDOMEN: soft & not tender w palpation MUSCULOSKELETAL: no cyanosis, no swelling, below-knee amputation bilaterally INTEGUMENT: no generalized pallor NEUROLOGICAL: cranial nerve function from 2-12 intact, follows commands Assessment and plan Patient is 61 years old male with past medical history of CAD/[place], COPD, type 2 diabetes mellitus, hypertension, CHF, CVA with residual left hemiplegia, PVD, history of COVID-19, aphasia, dysphagia, status post bilateral BKA, GERD, HDL and ARNALDO who arrives with complaints of nausea vomiting and abdominal pain. Patient was found to have profound electrolyte abnormalities. Electrolytes abnormalities Electrolytes replaced Nausea/vomiting Resolved CT abdomen showed mildly distended gallbladder. No gallbladder calculi or sec ondary signs of acute cholecystitis. No small bowel obstruction or ileus Continue PPI Continue Zofran as needed Deconditioning PT/OT BRETT on CKD Most likely secondary to volume contraction secondary to vomiting Continue to monitor Resolved Leukocytosis Could be secondary to viral gastroenteritis or could be reactive blood culture negative, procalcitonin negative UA negative Chest x-ray did not show any acute infiltrate Patient afebrile. Resolved History of dysphagia Await speech and specialist evaluation on Thursday History of CVA Continue home meds Type 2 diabetes Insulin sliding scale Glucose level under control Hypertension Continue home meds with parameters Depression Continue home meds Avascular hip necrosis Incidental CT finding: Changes of avascular necrosis in femoral heads. Confirmed with Ortho on-call this is a chronic finding and no acute interventions Chronic diastolic CHF Not in acute exacerbation Continue to monitor Lasix on hold VS,Fishbone, I+O VS, Fishbone, I+O Laboratory Tests 07/28/21 06:44 Vital Signs Date Time Temp Pulse Resp B/P (MAP) Pulse Ox O2 Delivery O2 Flow Rate FiO2 07/28/21 10:21 17 Room Air 07/28/21 09:49 64 144/77 07/28/21 06:00 98.0 92 I&O- Last 24 Hours up to 6 AM 07/28/21 06:00 Intake Total 3610 ml Output Total 650 ml Balance 2960 ml DROZHZHIN,SOLO DO Jul 28, 2021 12:31
[2021-07-28 14:00] VITALS: BP 110/63
[2021-07-28] MEDS: traZODone 25MG PER 1/2 TABLET PO SCH (21:51)
[2021-07-28] MEDS: ATORVASTATIN 20 MG TAB PO SCH (21:51)
[2021-07-28 22:00] VITALS: BP 132/65
[2021-07-29] MEDS: ACETAMINOPHEN TAB 650MG DOSE (2X325MG) PO PRN ×2 (04:21→06:06)
[2021-07-29] MEDS: HEPARIN SOD (PORCINE) 5000UNITS/ML 1ML VIAL/SYRINGE SQ SCH (06:05)
[2021-07-29] MEDS: PERCOCET 5MG/325MG TAB PO PRN ×2 (06:08→10:33)
[2021-07-29 06:24] VITALS: BP 136/79
[2021-07-29 08:00] VITALS: BP 130/80
[2021-07-29] MEDS ORDERED: MAG SULF 1GM/100ML (MAG RUN) 1 GM in IV 1 EA IV ONE (08:00)
[2021-07-29] MEDS ORDERED: POTASSIUM CHLORIDE 10MEQ SR TABLET PO SCH (09:00)
[2021-07-29] MEDS ORDERED: KCL 10MEQ/100ML SWI (KRUN) 10 MEQ in IV 1 EA IV ONE (09:00)
[2021-07-29] MEDS: HumaLOG INSULIN (NovoLOG) PER UNIT SC SCH ×2 (09:55→11:10)
[2021-07-29] MEDS: ASPIRIN 81 MG CHEW TABLET PO SCH (09:56)
[2021-07-29] MEDS: FLUoxetine 20 MG CAP PO SCH (09:56)
[2021-07-29 09:57] VITALS: BP 130/80
[2021-07-29] MEDS: NYSTATIN 100,000 UNITS/GM TOPICAL PWD 15 GM TOP SCH (09:57)
[2021-07-29] MEDS: PANTOPRAZOLE 40MG VIAL (C9113 PER 1) IV SCH (09:57)
[2021-07-29] MEDS: CARVedilol 12.5 MG TAB PO SCH (09:57)
[2021-07-29] MEDS: MAGNESIUM OXIDE 400MG TAB (MAG-OX) PO SCH (10:30)
[2021-07-29 10:33] VITALS: BP 133/79
[2021-07-29] MEDS ORDERED: MAGN400T2 PO (10:35)
[2021-07-29] MEDS ORDERED: POTA-136 PO (10:35)
--- NOTE | 2021-07-29 13:09 | DS.PDOC ---
Discharge Summary General Date of Admission Jul 25, 2021 at 20:36 Date of Discharge 07/29/21 Discharge Summary PROCEDURES PERFORMED DURING STAY: [None]. ADMITTING DIAGNOSES: Electrolytes abnormalities Nausea/vomiting Deconditioning BRETT on CKD Leukocytosis History of dysphagia Type 2 diabetes Hypertension History of CVA Depression Avascular hip necrosis Chronic diastolic CHF DISCHARGE DIAGNOSES: Electrolytes abnormalities Nausea/vomiting Deconditioning BRETT on CKD Leukocytosis History of dysphagia Type 2 diabetes Hypertension History of CVA Depression Avascular hip necrosis Chronic diastolic CHF COMPLICATIONS/CHIEF COMPLAINT: Dehydration, Sirs. HISTORY OF PRESENT ILLNESS: Patient is 61 years old male with past medical history of CAD/NC, COPD, type 2 diabetes mellitus, hypertension, CHF, CVA with residual left hemiplegia, PVD, history of COVID-19, aphasia, dysphagia, status post bilateral BKA, GERD, HDL and ARNALDO who arrives with complaints of nausea vomiting and abdominal pain. Patient was found to have profound electrolyte abnormalities. HOSPITAL COURSE: During the hospital stay the following issue addressed Electrolytes abnormalities Electrolytes replaced Nausea/vomiting Most likely viral gastroenteritis Resolved CT abdomen showed mildly distended gallbladder. No gallbladder calculi or secondary signs of acute cholecystitis. No small bowel obstruction or ileus Patient received PPI, Zofran as needed Deconditioning PT/OT BRETT on CKD Most likely secondary to volume contraction secondary to vomiting Continue to monitor Resolved Leukocytosis Could be secondary to viral gastroenteritis or could be reactive blood culture negative, procalcitonin negative UA negative Chest x-ray did not show any acute infiltrate Patient afebrile. Resolved History of dysphagia Speech evaluation in the outpatient settings History of CVA Continue home meds Type 2 diabetes Insulin sliding scale Glucose level under control Hypertension Continue home meds with parameters Depression Continue home meds Avascular hip necrosis Incidental CT finding: Changes of avascular necrosis in femoral heads. Confirme d with Ortho on-call this is a chronic finding and no acute interventions Chronic diastolic CHF Not in acute exacerbation Continue to monitor Lasix on hold DISCHARGE MEDICATIONS: Please see below. ALLERGIES: Please see below. PHYSICAL EXAMINATION ON DISCHARGE: VITAL SIGNS: Please see below. GENERAL APPEARANCE: NAD HEENT: no scleral icterus, no JVD, EOMI CARDIOVASCULAR: S1S2 LUNGS: CTA ABDOMEN: soft & not tender w palpation MUSCULOSKELETAL: no cyanosis, no swelling, below-knee amputation bilaterally INTEGUMENT: no generalized pallor NEUROLOGICAL: cranial nerve function from 2-12 intact, follows commands LABORATORY DATA: Please see below. IMAGING: See above PROGNOSIS: Fair ACTIVITY: [As tolerated]. DIET: Diabetes diet DISPOSITION: Snf Other Fpc. ITEMS TO FOLLOWUP ON ON OUTPATIENT: With PCP DISCHARGE CONDITION: [Stable]. TIME SPENT ON DISCHARGE: 40 minutes. Vital Signs/I&Os Vital Signs Date Time Temp Pulse Resp B/P (MAP) Pulse Ox O2 Delivery O2 Flow Rate FiO2 07/29/21 11:03 20 07/29/21 10:33 64 133/79 94 Room Air 07/29/21 08:00 97.9 I&O- Last 24 Hours up to 6 AM 07/29/21 06:00 Intake Total 2060 ml Output Total 2850 ml Balance -790 ml Laboratory Data Labs 24H Laboratory Tests 2 07/28/21 13:23: Bedside Glucose (Misc Panel) 146H 07/28/21 17:34: Bedside Glucose (Misc Panel) 157H 07/28/21 21:45: Bedside Glucose (Misc Panel) 87 07/29/21 10:50: Coronavirus (COVID-19)(PCR) NEGATIVE FSBS Laboratory Tests Test 07/28/21 13:23 07/28/21 17:34 07/28/21 21:45 Range/Units Bedside Glucose (Misc Panel) 146 157 87 80-115 MG/DL Microbiology Microbiology 07/26/21 Blood Culture - Preliminary, Resulted No Growth after 72 hours. All specime... 07/26/21 Gastrointestinal Tract Panel (PCR) - Final, Complete Discharge Medications Scheduled Amlodipine Besylate (Amlodipine Besylate) 5 Mg Tablet, 5 MG PO DAILY, (Reported) Aspirin (Aspirin) 81 Mg Tab.chew, 81 MG PO DAILY, (Reported) Atorvastatin Calcium (Atorvastatin Calcium) 40 Mg Tablet, 40 MG PO QHS, (Reported) Carvedilol (Carvedilol) 12.5 Mg Tablet, 12.5 MG PO BID, (Reported) Dextrose (Dextrose 5%-Water IV Soln) 500 Ml Iv.soln, IV ASDIRECTED, (Reported) 60ML/HR FOR HYDRATION AT [facility] Fluoxetine Hcl (Fluoxetine HCl) 40 Mg Capsule, 40 MG PO DAILY, (Reported) Furosemide (Furosemide) 40 Mg Tablet, 40 MG PO DAILY, (Reported) Isosorbide Mononitrate (Isosorbide Mononitrate ER) 60 Mg Tab.er.24h, 60 MG PO DAILY, (Reported) Magnesium Oxide (Magnesium Oxide) 400 Mg Tablet, 400 MG PO BID Menthol/Zinc Oxide (Calmoseptine Ointment Packet) 3.5 Gm Oint.pack, 1 DOSE TOP DAILY, (Reported) APPLY TO BUTTOCKS Metformin HCl (Metformin HCl) 500 Mg Tablet, 500 MG PO BID, (Reported) Morphine Sulfate (Morphine Sulfate ER 24HR) 10 Mg Cap.er.pel, 10 MG PO BID, (Reported) Pantoprazole Sodium (Pantoprazole Sodium) 40 Mg Tablet.dr, 40 MG PO DAILY, (Reported) Potassium Chloride (Klor-Con M10) 10 Meq Tab.er.prt, 40 MEQ PO DAILY Trazodone HCl (Trazodone HCl) 50 Mg Tablet, 25 MG PO QHS, (Reported) Scheduled PRN Oxycodone HCl/Acetaminophen (Oxycodone-Acetaminophen 5-325) 1 Each Tablet, 1 TAB PO Q6H PRN for MODERATE/SEVERE PAIN (PS 5-10), (Reported) Prochlorperazine (Prochlorperazine) 25 Mg Supp.rect, 25 MG AL Q12H PRN for NA USEA OR VOMITING, (Reported) Allergies Coded Allergies: Contrast Media (Verified Allergy, Unknown, unknown, 07/23/20) Penicillins (Verified Allergy, Unknown, rash, 07/23/20) SOLO DOVE DO Jul 29, 2021 13:09
== END 2021-07-29 12:42 ==
LOC: M ED 20:35 → M ED INP 20:36 → M MSPAV 07-26 01:45
PROVIDERS: ADMIT Family Medicine; ATTEND Internal Medicine
DX: E87.8 Other disorders of electrolyte and fluid balance, not elsewhere classified (principal); R11.2 Nausea with vomiting, unspecified; R53.81 Other malaise; N17.9 Acute kidney failure, unspecified; N18.9 Chronic kidney disease, unspecified; D72.829 Elevated white blood cell count, unspecified; I69.391 Dysphagia following cerebral infarction; E83.51 Hypocalcemia; R10.9 Unspecified abdominal pain; E11.51 Type 2 diabetes mellitus with diabetic peripheral angiopathy without gangrene; I13.0 Hypertensive heart and chronic kidney disease with heart failure and stage 1 through stage 4 chronic kidney disease, or unspecified chronic kidney disease; I50.32 Chronic diastolic (congestive) heart failure; F32.9 Major depressive disorder, single episode, unspecified; M87.059 Idiopathic aseptic necrosis of unspecified femur; I25.10 Atherosclerotic heart disease of native coronary artery without angina pectoris; I69.354 Hemiplegia and hemiparesis following cerebral infarction affecting left non-dominant side; I73.9 Peripheral vascular disease, unspecified; Z86.16 Personal history of COVID-19; K21.9 Gastro-esophageal reflux disease without esophagitis; G47.33 Obstructive sleep apnea (adult) (pediatric); E78.5 Hyperlipidemia, unspecified; R47.02 Dysphasia; I25.2 Old myocardial infarction; J44.9 Chronic obstructive pulmonary disease, unspecified; Z89.511 Acquired absence of right leg below knee; Z89.512 Acquired absence of left leg below knee; K80.20 Calculus of gallbladder without cholecystitis without obstruction; Z79.899 Other long term (current) drug therapy; Z79.82 Long term (current) use of aspirin; Z79.4 Long term (current) use of insulin; Z79.891 Long term (current) use of opiate analgesic; Z88.0 Allergy status to penicillin; Z91.041 Radiographic dye allergy status; Z87.891 Personal history of nicotine dependence
CPT/HCPCS: 36415; 71045; 74176; 80047; 80053; 80076; 81001; 82140; 82150; 82550; 82553; 83036; 83605; 83690; 83735; 83880; 83970; 84145; 84439; 84443; 84484; 85025; 85610; 85730; 86850; 86900; 86901; 87040; 87505; 87631; 92526; 92610; 93005; 93041; 96361; 96365; 96366; 96367; 96372; 96375; 96376; 97161; 99285; C9113; G0378; J0610; J1644; J2270; J2405; J3475; U0002

== ENCOUNTER 2021-09-04 13:11 | Emergency (ER) | payer OTHER ==
[~2021-09-04 13:11] MED LIST changes: +AMLO1TAB24 PO; +ASPI-161 PO; +ASPI1CHW3 PO; +MAGN400T2 PO; +METF-839 PO; +NEUR300C PO; +POTA-136 PO; +PROC25SU24 PR; +[UNRECOGNIZED DRUG - OTHER] IV
[2021-09-04 17:00] VITALS: BP 128/76
== END 2021-09-04 17:21 | disposition home or self-care (01) ==
LOC: M ED 13:11
DX: F43.0 Acute stress reaction (principal); I51.9 Heart disease, unspecified; I10 Essential (primary) hypertension; F20.9 Schizophrenia, unspecified; Z86.73 Personal history of transient ischemic attack (TIA), and cerebral infarction without residual deficits; Z79.82 Long term (current) use of aspirin; Z79.84 Long term (current) use of oral hypoglycemic drugs; Z91.040 Latex allergy status; Z88.0 Allergy status to penicillin